=== PATIENT | male | born 1970 | race Caucasian/White ===

== ENCOUNTER 2017-04-30 20:21 | Emergency (ER) | payer OTHER ==
[~2017-04-30] VITALS: Ht 167.6 cm; Wt 85.8 kg
[2017-04-30 20:23] VITALS: BP 144/104
[2017-04-30] MEDS ORDERED: MICROFIBRILLAR COLLAGEN 1 GM TP ONE (20:41)
[2017-04-30] MEDS ORDERED: DIPH,PERTUSS(ACELL),TET VAC/PF 0.5 ML IM-VACC ONE ×2 (21:00→21:05)
[2017-04-30] MEDS ORDERED: MICROFIBRILLAR COLLAGEN 0.5GM/PACK TP ONE (21:00)
== END 2017-04-30 21:33 | disposition home or self-care (01) ==
LOC: ED 21:27
DX: S61.210A Laceration without foreign body of right index finger without damage to nail, initial encounter (principal); W26.0XXA Contact with knife, initial encounter; Y93.89 Activity, other specified; Y99.0 Civilian activity done for income or pay; Y92.69 Other specified industrial and construction area as the place of occurrence of the external cause
CPT/HCPCS: 12041; 90471; 90715